=== PATIENT | female | born 1995 | race Asian ===

== ENCOUNTER 2017-07-08 01:01 | Emergency (ER) | payer BC, OTHER ==
--- NOTE | 2017-07-08 01:08 | EMERGENCY ROOM VISIT NOTE ---
History Report prepared by Luda: Andrew Montez Under the Supervision of: Dr. Karissa Acuña D.O. First contact with patient: 01:02 Stated Complaint: ALCOHOL History of Present Illness The patient is a 22 year old female who presents to the Emergency Room with complaints of an episode of an alcohol overdose occurring tonight. Per police, the patient was found stumbling in the middle of the street tonight. He notes that when EMS arrived, the patient started kicking and punching. He reports that the patient was given 2 of Ativan IM and 2 of versed IV. He states that the patient's sugar was 123 and that she was tachycardic in the 150s. HPI limited secondary to alcohol intoxication. Source of History: police History Limited By: intoxication (alcohol) Onset: tonight Position: other (global) Quality: other (alcohol intoxication) Timing: other (an episode) Review of Systems ROS limited secondary to alcohol intoxication. Past Medical & Surgical Medical Problems: (1) No chronic problems Family History No pertinent family history stated. Social History Alcohol Use: heavy Marital Status: single Housing Status: lives with roommate Occupation Status: [employer] student Current/Historical Medications Unable to Obtain Active Prescriptions or Reported Meds Physical Exam Vital Signs Date Time Temp Pulse Resp B/P (MAP) Pulse Ox O2 Delivery O2 Flow Rate FiO2 07/08/17 06:45 85 15 97 07/08/17 06:00 102 16 102/67 97 Room Air 07/08/17 05:10 89 07/08/17 05:00 89 16 97/51 96 Room Air 07/08/17 04:00 91 16 96/59 96 Room Air 07/08/17 03:06 90 16 94/53 95 Room Air 07/08/17 02:01 92 17 92/52 96 Room Air 07/08/17 01:30 97 17 96/51 95 Room Air 07/08/17 01:15 111 07/08/17 01:10 94 Room Air 07/08/17 01:10 107 21 114/70 94 Room Air Physical Exam General: Incomprehensible speech, foaming at the mouth at times, smells of alcohol. HEENT: Head - normocephalic and atraumatic Pupils 2mm and nonreactive. Extraocular eye muscles are intact, and sclera are anicteric. Nose - moist nasal mucosa without discharge. Mouth - moist buccal mucosa. Oropharynx is nonerythematous and there is no tonsillar exudate or edema noted. Neck: Supple; no JVD, nuchal rigidity, cervical lymphadenopathy. Heart: Regular rhythm and tachycardic. There is a normal S1 and S2 with no murmurs, clicks, or gallops appreciated. Lungs: Clear to auscultation bilaterally with no wheezes, rales, or rhonchi. Abdomen: Soft, completely nontender, nondistended, with good bowel sounds. There are no palpable pulsatile masses or hepatosplenomegaly. There is no guarding, rigidity, or rebound noted. Extremities: No evidence of cyanosis, clubbing, or edema. There are easily palpable peripheral pulses. Skin: warm and dry with good turgor and no rashes. Medical Decision & Procedures Laboratory Results 07/08/17 00:51 Test 07/08/17 00:51 07/08/17 01:13 Anion Gap 9.0 mmol/L (3-11) Estimated GFR () 72.8 Estimated GFR (Non- 62.8 BUN/Creatinine Ratio 9.8 (10-20) Calcium Level 9.0 mg/dl (8.5-10.1) Ethyl Alcohol mg/dL 294.0 mg/dl (0-3) Laboratory results per my review. ED Course 0102: Past medical records reviewed. The patient was evaluated in room B11. A complete history and physical exam was performed. The patient was placed in the prone position to avoid aspiration. They were observed on the personnel monitor and pulse oximeter. Labs were drawn as above 0127: I reevaluated the patient. She is asleep and her vitals are stable. 0350: The patient was still sleeping at this time and hemodynamically stable. 0510: The patient remains asleep and vitals are stable. 0730: The patient was signed out to Dr. Lewis at the change of shift. Medical Decision The patient is a 22 year old female who presents to the Emergency Room with complaints of an episode of alcohol overdose occurring tonight. Differential diagnoses include: alcohol overdose, drug intoxication, hypoglycemia, and head injury. Lab Results Show: Alcohol 294. BUN 12. Creatinine 1.2. Glucose 114. The patient was brought to the emergency department after consuming too much alcohol. There were no obvious signs of trauma or complaints of pain. Unfortunately, the patient became combative with EMS and police and was sedated on the scene. She was given 2 mg of IM Ativan with no response. An IV lock was initiated by the hospice community liaison and she was given 2 mg of IV Versed. They were observed closely throughout the night and remained stable while here in the ER. The patient was allowed time to sober up prior to discharge. I had a conversation with the patient about the hazards of such excessive alcohol use. The patient was very difficult to arouse at the end of my shift. Did not feel comfortable discharging her at this time. The case will be signed out to Dr. Lewis for final disposition. Blood Pressure Screening Patient's blood pressure: Normal blood pressure Blood pressure disposition: Did not require urgent referral Impression Primary Impression: Alcohol overdose Scribe Attestation The scribe's documentation has been prepared under my direction and personally reviewed by me in its entirety. I confirm that the note above accurately reflects all work, treatment, procedures, and medical decision making performed by me. Departure Information Dispostion Still a Patient Prescriptions Unable to Obtain Active Prescriptions or Reported Meds Referrals [facility] (PCP) Problem Qualifiers Primary Impression: Alcohol overdose Encounter type: initial encounter Injury intent: accidental or unintentional Qualified Codes: T51.91XA - Toxic effect of unspecified alcohol , accidental (unintentional), initial encounter
[2017-07-08 01:10] VITALS: O2SAT 94
[2017-07-08 01:44] LABS: BLOOD UREA NITROGEN 12 mg/dl (7-18); CARBON DIOXIDE 19 mmol/L (21-32); CREATININE 1.22 mg/dl (0.60-1.20); GLUCOSE 114 mg/dl (70-99); POTASSIUM 3.4 mmol/L (3.5-5.1); SODIUM 142 mmol/L (136-145)
[2017-07-08] MEDS ORDERED: ONDANSETRON 4MG OD TAB PO ONE (09:15)
[2017-07-08 09:44] VITALS: BP 115/82; PULSE 112; TEMP 36.4; O2SAT 100
--- NOTE | 2017-07-08 09:48 | EMERGENCY ROOM VISIT NOTE ---
ED Visit Note First contact with patient: 09:04 I received this patient at change of shift signout from Dr. Acuña. Please see her note for complete history and physical. The patient presented to the emergency department for alcohol intoxication. She received sedation for her own protection because she was acting out aggressively against police as well as prehospital personnel. The patient was reevaluated this morning. She continued to have nausea and vomiting symptoms. She was treated with Zofran and was feeling much better. I discussed patient's laboratory studies with her. She did admit to drinking multiple alcoholic beverages last evening. She did not remember the incident where she became combative. At this time she has no physical complaints. She was able to be discharged home. She was encouraged to avoid any further alcoholic beverages. She was also encouraged to avoid operating any heavy machinery including driving a vehicle for the next 24 hours. She was also encouraged to return to the emergency department immediately if symptoms change worsen or the need arises.
== END 2017-07-08 09:46 | disposition home or self-care (01) ==
LOC: EDBD 01:01 → C.EDB 01:03
DX: F10.129 Alcohol abuse with intoxication, unspecified (principal); Y90.8 Blood alcohol level of 240 mg/100 ml or more; R00.0 Tachycardia, unspecified